=== PATIENT | female | born 1955 | race Caucasian/White ===

== ENCOUNTER 2018-01-20 11:02 | Emergency (ER) | payer OTHER ==
[~2018-01-20] VITALS: Ht 162.6 cm; Wt 49.0 kg
[~2018-01-20 11:02] MED LIST: CELE-193 PO; CHOL100046 PO; OSC500T PO
[2018-01-20 11:08] VITALS: BP 111/73
== END 2018-01-20 12:18 | disposition home or self-care (01) ==
LOC: ER 11:03
DX: M79.671 Pain in right foot (principal); G89.29 Other chronic pain; Z79.899 Other long term (current) drug therapy
CPT/HCPCS: 73630; 99283

== ENCOUNTER 2022-12-04 13:56 | Outpatient (CLI) | payer SELFPAY | END 2022-12-04 23:59 | disposition home or self-care (01) | LOC: RAD 13:56 | DX: R07.81 Pleurodynia (principal) | CPT/HCPCS: 71046; 71100 ==

== ENCOUNTER 2023-08-29 09:41 | Outpatient (CLI) | payer BC | END 2023-08-29 23:59 | disposition home or self-care (01) | LOC: MRI 09:41 | PROVIDERS: ATTEND Registered Nurse | DX: M47.817 Spondylosis without myelopathy or radiculopathy, lumbosacral region (principal); M47.813 Spondylosis without myelopathy or radiculopathy, cervicothoracic region; M48.02 Spinal stenosis, cervical region; M25.78 Osteophyte, vertebrae; N28.1 Cyst of kidney, acquired; K74.60 Unspecified cirrhosis of liver; M48.07 Spinal stenosis, lumbosacral region; M43.8X4 Other specified deforming dorsopathies, thoracic region; M41.9 Scoliosis, unspecified; M81.0 Age-related osteoporosis without current pathological fracture | CPT/HCPCS: 72141; 72146; 72148 ==

== ENCOUNTER 2023-10-07 00:53 | Outpatient (CLI) | payer BC ==
[2023-10-07 07:23] LABS: BASOPHILS % (AUTO) 0.2 % (0-1); EOSINOPHILS # (AUTO) 0.1 X10'3 (0-0.9); EOSINOPHILS % (AUTO) 0.4 % (0-6); HEMATOCRIT 39.3 % (35.0-45.0); HEMOGLOBIN 12.9 g/dl (12.0-16.0); LYMPHOCYTES # (AUTO) 2.1 X10'3 (1.1-4.8); LYMPHOCYTES % (AUTO) 13.9 % (21-51); MEAN CORPUSCULAR HEMOGLOBIN 31.9 PG (27.0-31.0); MEAN CORPUSCULAR HGB CONC 32.7 g/dL (33.0-36.5); MEAN CORPUSCULAR VOLUME 97.3 FL (78-98); MEAN PLATELET VOLUME 8.5 FL (7.4-10.4); MONOCYTES # (AUTO) 1.1 X10'3 (0-0.9); MONOCYTES % (AUTO) 6.9 % (2-12); NEUTROPHILS # (AUTO) 11.9 X10'3 (1.8-7.7); NEUTROPHILS % (AUTO) 78.6 % (42-75); PLATELET COUNT 386 X10'3 (140-440); RED BLOOD COUNT 4.04 X10'6 (4.20-5.60); RED CELL DISTRIBUTION WIDTH 13.3 % (11.5-14.5); WHITE BLOOD COUNT 15.2 X10'3 (4.5-11.0)
[2023-10-07 07:50] LABS: ALANINE AMINOTRANSFERASE 16 U/L (12-78); ALBUMIN 4.2 G/DL (3.4-5.0); ALBUMIN/GLOBULIN RATIO 1.2 (1.1-1.5); ALKALINE PHOSPHATASE 71 IU/L (46-116); ANION GAP 5 (8-16); ASPARTATE AMINO TRANSFERASE 14 U/L (10-37); BILIRUBIN,TOTAL 0.6 MG/DL (0.1-1.0); BLOOD UREA NITROGEN 24 MG/DL (7-18); BUN/CREATININE RATIO 31.2 (10.0-20.0); CALCIUM 9.3 MG/DL (8.5-10.1); CHLORIDE 104 MMOL/L (99-107); CHOL/HDL RATIO 3.2 (0.00-4.99); CHOLESTEROL 240 MG/DL (0-200); CREATININE 0.77 MG/DL (0.40-0.90); GLUCOSE 98 MG/DL (70-104); HDL CHOLESTEROL 75 MG/DL (35-60); LDL CHOLESTEROL 128 MG/DL (50-100); POTASSIUM 4.2 MMOL/L (3.5-5.1); SODIUM 139 MMOL/L (135-145); THYROID STIMULATING HORMONE 2.58 ulU/ml (0.34-4.50); TOTAL CARBON DIOXIDE 29.9 MMOL/L (24-32); TOTAL PROTEIN 7.6 G/DL (6.4-8.2); TRIGLYCERIDES 135 MG/DL (20-135); eGFR 75 ML/MIN
[2023-10-09 13:36] LABS: FOLATE SERUM(FOLIC) 14.6 ng/mL (>3.0)
== END 2023-10-07 23:59 | disposition home or self-care (01) ==
LOC: LAB 00:53
PROVIDERS: ATTEND Registered Nurse
DX: M81.0 Age-related osteoporosis without current pathological fracture (principal); M41.9 Scoliosis, unspecified; R53.83 Other fatigue; E55.9 Vitamin D deficiency, unspecified
CPT/HCPCS: 36415; 80053; 80061; 82306; 82607; 82746; 84443; 85025

== ENCOUNTER 2024-05-08 09:44 | Outpatient (CLI) | payer BC | END 2024-05-08 23:59 | disposition home or self-care (01) | LOC: RAD 09:44 | PROVIDERS: ATTEND Registered Nurse | DX: K82.4 Cholesterolosis of gallbladder (principal); R10.9 Unspecified abdominal pain; R10.30 Lower abdominal pain, unspecified; R10.10 Upper abdominal pain, unspecified; R14.0 Abdominal distension (gaseous); K76.89 Other specified diseases of liver | CPT/HCPCS: 76700 ==

== ENCOUNTER 2024-08-31 17:16 | Emergency (ER) | payer BC ==
[~2024-08-31] VITALS: Ht 157.5 cm; Wt 53.6 kg
--- NOTE | 2024-08-31 17:47 | RADIOLOGY REPORT ---
CHEST RADIOGRAPH Indication: CP Technique: Single frontal view of the chest was obtained COMPARISON: None FINDINGS: Lines and Tubes: None Lungs: Increased interstitial prominence Pleura: No effusion. No pneumothorax. Cardiomediastinal contours: Unremarkable Bones: Scoliosis IMPRESSION: Mild pulmonary vascular congestion or viral pneumonia.
[2024-08-31] MEDS ORDERED: HYDR-3965 PO (18:41)
--- NOTE | 2024-08-31 18:44 | Physician Documentation ---
History of Present Illness ~ Chief Complaint: Rib pain Stated Complaint: RIB PAIN Time Seen by MD: 17:30 Primary Medical Doctor: none Source: patient, RN/MD HPI Patient is seen today with complaints of right-sided rib pain after she slipped and fell and hit the edge of her pool on her right ribcage. Patient states she has had injury to the same right-sided ribcage previously. Patient states she is having significant difficulty making it through her work day because of pain. She states the date of injury was about two weeks ago. She denies any fevers or chills or changes of coughing as she states she does smoke and has a smoker's cough. Patient has no other concern or complaint at this time. She states she has needing a refill of [place] and a work note today. Tetanus within 5 Years?: Yes Allergies: Coded Allergies: No Known Allergies (Unverified , 12/25/09) Active Prescriptions See Medication Reconciliation Form. Medication Reconciliation Scheduled Calcium Carbonate* (Oscal*), 1 TAB PO DAILY, (Reported) Celecoxib* (Celebrex*), 100 MG PO DAILY, (Reported) Cholecalciferol (Vitamin D3) (Vitamin D), 1 CAP PO DAILY, (Reported) Past Medical History Past Medical History: Chronic Pain Past Surgical History: noncontributory Alcohol Use: None Drug Use: none Lives with: Spouse Lives In: Home Occupation: employed Review of Systems Constitutional: Denies: chills, fever, weakness Eyes: Denies: pain, blurred vision ENT: Denies: ear pain, nose pain, throat pain, mouth pain Respiratory: Denies: cough, shortness of breath Cardiovascular: Denies: chest pain, palpitations Gastrointestinal: Denies: abdominal pain, nausea, vomiting Genitourinary: Denies: burning, dysuria Female Genitalia: Denies: vaginal discharge, pelvic pain Neurological: Denies: headache, dizziness Musculoskeletal: Denies: pain, swelling Integumentary: Denies: rash, lesions Allergic/Immunologic: Denies: hives, itching Hematologic/Lymphatic: Denies: no symptoms reported Psychiatric: Denies: depression, anxiety Physical Exam Vital Signs: Temperature: 98.0, Source: Temporal, Heart Rate: 86, Respiratory Rate: 16, BP: 123/87, Pulse Oximetry: 96, Weight: 53.640 Oxygen Flow Rate: 0 Physical Exam General: Awake and Alert, no acute distress. HEENT: Conjunctiva pink, Sclera clear, Mucus Membranes moist. Neck: Supple without masses and tenderness. Resp: Unlabored. Lungs clear to auscultation bilaterally. Musculoskeletal: Patient does have significant tenderness to palpation of the right lower ribcage anterolaterally. I do not appreciate any step-offs. Heart: Regular Rate and rhythm, normal S1 and S2 without murmur, rub or gallop. Abdomen: Soft and non tender no organomegaly Extremities: No cyanosis,clubbing or edema. Skin: Warm and Dry. Progress Results/Orders Results/Orders Vital Signs 08/31/24 17:23 Temp 98.0 Pulse 86 Resp 16 B/P (MAP) 123/87 Pulse Ox 96 O2 Flow Rate 0 EKG/XRAY/CT/US/VASC/MRI Chest X-Ray : Additional Comments DIAGNOSTIC RADIOLOGY Patient: TAYLOR WOODALL Medical Record: [id number] [facility] : 1955, Age: 68 Sex: Female Location: ER Patient Status: [facility] ER Service Date/Time: 08/31/241735 Ordering Physician: CHRISTIANE CM MD Exam: CHEST,SINGLE VIEW CHEST RADIOGRAPH Indication: CP Technique: Single frontal view of the chest was obtained COMPARISON: None FINDINGS: Lines and Tubes: None Lungs: Increased interstitial prominence Pleura: No effusion. No pneumothorax. Cardiomediastinal contours: Unremarkable Bones: Scoliosis IMPRESSION: Mild pulmonary vascular congestion or viral pneumonia. Electronically Signed by:ALEXEI WHALEN MD Date & Time: 08/31/241743 Dictated by: ALEXEI WHALEN MD Dictation date and time: 08/31/241743 Primary Care Provider: NO PRIMARY CARE PROVIDER cc: CHRISTIANE CM MD ~ Medical Decision Making Findings Patient is seen today with complaints of right-sided rib pain after she slipped and fell and hit the edge of her pool on her right ribcage. Patient states she has had injury to the same right-sided ribcage previously. Patient states she is having significant difficulty making it through her work day because of pain. She states the date of injury was about two weeks ago. She denies any fevers or chills or changes of coughing as she states she does smoke and has a smoker's cough. Patient has no other concern or complaint at this time. She states she has needing a refill of [place] and a work note today. Patient was given dose of [place] 5/325 mg one tab by mouth 3 times a day for five days 15. Sent to patient's pharmacy [facility] in [place]. Patient will be given a note for work to be off for two weeks. Patient will follow up with primary care for re-evaluation and reassessment at that time. Return to ED with any worsening, concerning or changing symptoms. Patient did have chest x-ray that did show possible increased vascular congestion. Patient will monitor closely f or any changes in symptoms or shortness of breath or fevers or chills or productive cough. She voiced understanding. Departure Disposition: 01 HOME / SELF CARE / HOMELESS Impression: Primary Impression: Rib pain Discharge Instructions: Rib Contusion Additional Instructions: Patient was given dose of [place] 5/325 mg one tab by mouth 3 times a day for five days 15. Sent to patient's pharmacy [facility] in [place]. Patient will be given a note for work to be off for two weeks. Patient will follow up with primary care for re-evaluation and reassessment at that time. Return to ED with any worsening, concerning or changing symptoms. Patient did have chest x-ray that did show possible increased vascular congestion. Patient will monitor closely for any changes in symptoms or shortness of breath or fevers or chills or productive cough. She voiced understanding. Departure Forms: Excuse form Work or School Excused From: Work Excuse beginning now through the following date: Sep 14, 2024 Referrals: NO PRIMARY CARE PROVIDER (PCP) Prescriptions Hydrocodone Bit/Acetaminophen 5/325 MG ([place] 5/325 MG) 5 Mg/325 Mg Tablet 1 TAB PO TID PRN PRN for pain for 5 Days, #15 TAB Prov: QUEENIE GARCIA PAC 08/31/24 Signature Scribe Signature: No scribe Attestation: No scribe QUEENIE GARCIA PAC Aug 31, 2024 18:44
[2024-08-31 18:58] VITALS: BP 124/77; PULSE 69; RESP 16; TEMP 98; O2SAT 98
== END 2024-08-31 19:00 | disposition home or self-care (01) ==
LOC: ER 17:17
DX: R07.81 Pleurodynia (principal); W01.0XXA Fall on same level from slipping, tripping and stumbling without subsequent striking against object, initial encounter; Y93.89 Activity, other specified; Y92.89 Other specified places as the place of occurrence of the external cause; Y99.8 Other external cause status
CPT/HCPCS: 71045; 99284

== ENCOUNTER 2024-09-13 14:43 | Emergency (ER) | payer BC ==
[~2024-09-13] VITALS: Ht 157.5 cm; Wt 48.6 kg
[2024-09-13 14:52] VITALS: BP 107/63; PULSE 84; RESP 16; TEMP 98.4; O2SAT 95
--- NOTE | 2024-09-13 15:02 | Physician Documentation ---
History of Present Illness ~ Chief Complaint: Rib pain Stated Complaint: RECHECK DOC NOTE Time Seen by MD: 15:31 OK to notify your PCP?: Yes Primary Medical Doctor: none Source: patient Mode of Arrival: POV Exam Limitations: no limitations HPI 68-year-old female presents for right rib contusion which was healing but worsened after she cough yesterday. She was seen here 2 weeks ago and received x-rays with no fracture present. She was able to take the past 2 weeks off of work but needs another work note to extend her leave. She has been taking Tylenol for pain relief. Tetanus within 5 Years?: Yes Allergies: Coded Allergies: No Known Allergies (Unverified , 12/25/09) Active Prescriptions See Medication Reconciliation Form. Medication Reconciliation Scheduled Calcium Carbonate* (Oscal*), 1 TAB PO DAILY, (Reported) Celecoxib* (Celebrex*), 100 MG PO DAILY, (Reported) Cholecalciferol (Vitamin D3) (Vitamin D), 1 CAP PO DAILY, (Reported) Discontinued Medications Hydrocodone Bit/Acetaminophen 5/325 MG ([place] 5/325 MG), 1 TAB PO TID PRN PRN for pain Discontinued Reason: Auto Discontinued Past Medical History Past Medical History: Chronic Pain Past Surgical History: noncontributory Alcohol Use: None Drug Use: none Lives with: Spouse Lives In: Home Occupation: employed Review of Systems All Other Systems at this time: Reviewed and Negative Physical Exam Vital Signs: RN Vital Signs have been reviewed: Yes, Temperature: 98.4, Source: Temporal, Heart Rate: 84, Respiratory Rate: 16, BP: 107/63, Pulse Oximetry: 95, Weight: 48.650 Pulse Oximetry Reflects: adequate oxygenation Physical Exam General: Alert, no distress. HEENT: No injection, moist mucous membranes. Neck: Full range of motion. Respiratory: No respiratory distress, equal chest rise and fall. Chest: No accessory muscle use. Cardiovascular: Regular rate and rhythm. Gastrointestinal: Nondistended. Extremities: Normal range of motion, no deformity. Neurologic: Oriented x4. Psychiatric: Normal mood and affect. Skin: Normal color, warm and dry. Progress Results/Orders Reviewed/noted all lab results: Yes Results/Orders Vital Signs 09/13/24 14:52 Temp 98.4 Pulse 84 Resp 16 B/P (MAP) 107/63 Pulse Ox 95 Medical Decision Making Additional info obtained from: old records Findings 68-year-old female presents with rib contusion to left side and was seen 2 weeks ago with a negative rib X ray. It was starting to feel better but then yesterday cough and the rib pain returned. She is requesting to have more time off of work after she has not for the past 2 weeks that she is still in pain and can not feel that she can do her full duty. She needs to follow up with her [facility] for further instruction and light duty approval and PCP for medical leave/disability. I have written her a work note off for 1 more week. We applied a lidocaine patch while here in the department and I sent a prescription to her pharmacy for more. Discussed that she can continue to take Tylenol and/or ibuprofen for pain relief and use heat/ice you for relief as well. We discussed that it can take 6-8 weeks for rib contusions to fully heal. Differential Dx:Considerations: Include: Chest wall contusion, Pneumothorax, Rib fracture, Tension pneumothorax Departure Disposition: 01 HOME / SELF CARE / HOMELESS Impression: Primary Impression: Rib pain Condition: Stable Discharge Instructions: Rib Contusion Additional Instructions: Please continue to use Tylenol for your pain and I have prescribed lidocaine patches that you can put directly at the spot that hurts and keep it off for 12 hours at a time. You can also alternate ice and heat to the site 20 minutes on 20 minutes off. As you have already been off of work for the past 2 weeks, I can give you 1 more week off but you need to follow up with occupational health for further instruction/ light duty approval and see your PCP for medical leave/diasability. Rib contusions can take 6-8 weeks to fully heal. Departure Forms: Excuse form Work or School Excused From: Work Excuse beginning now through the following date: Sep 20, 2024 Referrals: NO PRIMARY CARE PROVIDER (PCP) Prescriptions Lidocaine (Lidocaine) 5 % Adh..patch 1 PATCH TOP DAILY for 30 Days, #30 PATCH 0 Refills Prov: OZYA GOSS [employer] 09/13/24 Education Educated: Patient Educated regarding: diagnosis, treatment, prognosis, need for follow up Additional Comment Medical Screen Exam This patient recieved a medical screening examination. After reviewing the individual's medical complaints with presenting symptoms and performing an appropriate physical examination, it was determined that no immediate life- threatening emergency medical condition is present. This individual is also not a women having contractions. Signature Scribe Signature: . Attestation: Scribed for Zoya Goss by Zoya Strong NP . 09/13/24 15:54 Parts of this note were created using [employer] voice recognition software program. While efforts were made to correct any mistakes made by this voice recognition software program, nonsensical phrases may remain in this note. In addition, there may be errors and syntax, grammar, content and spelling. ZOYA GOSSP Sep 13, 2024 15:02
[2024-09-13] MEDS ORDERED: LIDO700A47 TOP (15:55)
== END 2024-09-13 16:21 | disposition home or self-care (01) ==
LOC: ER 14:44
DX: R07.81 Pleurodynia (principal); R05.9 Cough, unspecified; Z79.1 Long term (current) use of non-steroidal anti-inflammatories (NSAID)
CPT/HCPCS: 99284

== ENCOUNTER 2024-10-17 06:38 | Emergency (ER) | payer BC ==
[~2024-10-17] VITALS: Ht 157.5 cm; Wt 48.0 kg
[~2024-10-17 06:38] MED LIST changes: +LIDO700A47 TOP
--- NOTE | 2024-10-17 06:46 | ELECTROCARDIOGRAPH REPORT ---
[facility] Test Date: 2024-10-17 Test Time: 06:44:27 Pat Name: TAYLOR WOODALL Department: EMERGENCY ROOM Room: Gender: F Head Correction Officer: JUAN : 1955 Requested By: YAZMIN JACOBO Order Number: [id number] Reading MD: Measurements Intervals [place] Rate: 82 P: 79 GA: 161 QRS: -21 QRSD: 142 T: 30 QT: 378 QTc: 442 Interpretive Statements Atrial-paced complexes Right atrial enlargement Nonspecific intraventricular conduction delay Please click the below link to view image of tracing.
--- NOTE | 2024-10-17 07:04 | Physician Documentation ---
History of Present Illness General Chief Complaint: Chest Pain Stated Complaint: CHEST DISCOMFORT Time Seen by MD: 07:03 Primary Medical Doctor: none History of Present Illness Initial Comments The patient is a 69-year-old female who presents to the emergency room with left-sided chest pain. Patient states pain is pleuritic has been going on for last week. The patient states she was told by a family member that she should be evaluated for the chest pain. Patient states she had an injury to her right chest wall one month ago and has been on pain medication for that. The patient denies any cardiac history. Patient is a smoker. Patient denies any dyspnea on exertion. She does complain of pleuritic chest pain. Patient denies any fevers chills nausea or vomiting. Patient's symptoms are moderate and persistent. Medication Reconciliation Allergies: Coded Allergies: No Known Allergies (Unverified , 10/17/24) Scheduled Calcium Carbonate* (Oscal*), 1 TAB PO DAILY, (Reported) Celecoxib* (Celebrex*), 100 MG PO DAILY, (Reported) Cholecalciferol (Vitamin D3) (Vitamin D), 1 CAP PO DAILY, (Reported) Lidocaine (Lidocaine), 1 PATCH TOP DAILY Past Medical History Past Medical History: Chronic Pain Past Surgical History: noncontributory Smoking: Cigarettes Alcohol Use: None Drug Use: none Lives with: Spouse Lives In: Home Occupation: employed Review of Systems All Other Systems at this time: Reviewed and Negative Physical Exam Physical Exam Vital Signs: Temperature: 97.9, Source: Temporal, Heart Rate: 85, Respiratory Rate: 16, BP: 147/79, Pulse Oximetry: 95, Weight: 48.000 Physical Exam VITALS: Reviewed and as above. GENERAL: Alert, no apparent distress. HEENT: Normocephalic, atraumatic, PERRL, EOMI, dry mucosa, no erythema RESPIRATORY: Lungs clear, normal breath sounds, no respiratory distress. CHEST: No accessory muscle use, no retractions CV: Regular rate, rhythm, no edema, no murmur, No: JVD GI: Soft, non-tender, bowels sounds present, no rebound, guarding, or rigidity BACK: No CVA tenderness, or swelling MUSCULOSKELETAL: No deformities, no edema SKIN: Warm and dry, no rash NEURO: Oriented x4, No motor or sensory deficit PSYCH: Normal mood and affect, no agitation Progress Results/Orders Results/Orders Orders - OHLYAZMIN MCGRATH MD Chest,Single View (10/17/24 07:12) Monitor (10/17/24 06:40) Saline Lock (10/17/24 06:40) Oxygen (10/17/24 06:40) Completed Orders - YAZMIN HERNANDEZ MD Chest,Single View (10/17/24 07:12) Cbc/Diff (10/17/24 06:40) BMP (10/17/24 06:40) PBNP (10/17/24 06:40) Electrocardiogram (10/17/24 06:40) Hs Troponin I W Calculations (10/17/24 06:40) D-Dimer (10/17/24 07:14) Vital Signs 10/17/24 10/17/24 10/17/24 10/17/24 06:42 07:23 07:39 07:41 Temp 97.9 98.3 Pulse 85 69 Resp 16 15 15 B/P (MAP) 147/79 129/85 (100) Pulse Ox 95 98 O2 Delivery Room Air* O2 Flow Rate 0 0 FiO2 21 10/17/24 10/17/24 09:04 09:40 Pulse 64 68 Resp 14 11 B/P (MAP) 120/82 (95) 120/82 Pulse Ox 96 97 O2 Flow Rate 0 Laboratory Tests Test 10/17/24 06:50 10/17/24 07:20 White Blood Count 8.5 Red Blood Count 4.34 Hemoglobin 14.0 Hematocrit 41.5 Mean Corpuscular Volume 95.5 Mean Corpuscular Hemoglobin 32.3 H Mean Corpuscular Hemoglobin Concent 33.8 Red Cell Distribution Width 13.0 Platelet Count 422 Mean Platelet Volume 8.6 Neutrophils (%) (Auto) 59.2 Lymphocytes (%) (Auto) 30.6 Monocytes (%) (Auto) 7.7 Eosinophils (%) (Auto) 1.8 Basophils (%) (Auto) 0.7 Neutrophils # (Auto) 5.0 Lymphocytes # (Auto) 2.6 Monocytes # (Auto) 0.7 Eosinophils # (Auto) 0.2 Basophils # (Auto) 0.1 CBC Comment Sodium Level 139 Potassium Level 3.9 Chloride Level 102 Carbon Dioxide Level 29.6 Anion Gap 7 L Blood Urea Nitrogen 17 Creatinine 0.87 Estimated GFR/1.73 m2 65 BUN/Creatinine Ratio 19.5 Glucose Level 119 H Calcium Level 9.4 Troponin I High Sensitivity 9 Pro-B-Type Natriuretic Peptide 228 H Albumin 4.1 Chemistry Comments D-Dimer 0.83 H D-Dimer Comment Medical Decision Making Findings Patient's EKG was interpreted by me the patient's EKG demonstrates a sinus rhythm with a rate of 82 there is a left axis deviation. At nonspecific ST abnormalities. The EKGs interpreted by me as nonspecific abnormalities. The patient's chest x-ray was independently interpreted by myself and shows a normal-appearing cardiac silhouette and normal-appearing lung pittman lower and scoliosis of the thoracic spine my interpretation was a normal chest x-ray I have reviewed the radiologist's interpretation as well the patient has a D-dimer of 0.83 but given her clinical history and history of coughing I do believe that her chest wall pain is likely attributed to muscle strain the patient has asked for a work note for a week the patient will be discharged with instructions to return for worsening of her symptoms. The patient's pulse oximetry was interpreted as normal and adequate the patient's hall monitor was interpreted as a sinus rhythm Departure Impression: Primary Impression: Pleurisy Discharge Instructions: Nonspecific Chest Pain, Adult Departure Forms: Excuse form Work or School Excused From: Work Excuse beginning now through the following date: Oct 22, 2024 May Return but still avoid physical Activity from now until: Oct 23, 2024 Referrals: NO PRIMARY CARE PROVIDER (PCP) Signature Scribe Signature: No scribe Attestation: The note accurately reflects work and decisions made by me.Yazmin Hernandez MD 10/18/24 16:53 YAZMIN HERNANDEZ MD Oct 17, 2024 07:04
[2024-10-17 07:09] LABS: MEAN PLATELET VOLUME 8.6 FL (7.4-10.4); RED CELL DISTRIBUTION WIDTH 13.0 % (11.5-14.5)
[2024-10-17 07:31] LABS: CREATININE 0.87 MG/DL (0.40-0.90); PRO BRAIN NATRIURETIC PEPTIDE 228 PG/ML (0-125); TOTAL CARBON DIOXIDE 29.6 MMOL/L (24-32); eCRCL 47 ML/MIN; eGFR 65 ML/MIN
[2024-10-17 07:41] VITALS: TEMP 98.3
[2024-10-17 09:40] VITALS: BP 120/82; PULSE 68; RESP 11; O2SAT 97
--- NOTE | 2024-10-17 15:04 | RADIOLOGY REPORT ---
DI CHEST,SINGLE VIEW, HISTORY: CP COMPARISON: DI CHEST,SINGLE VIEW on DOS: 08/31/24, DI CHEST,TWO VIEWS on DOS: 12/04/22 DI CHEST,SINGLE VIEW on DOS: 08/31/24, DI CHEST,TWO VIEWS on DOS: 12/04/22 TECHNICAL DATA: 1 view of the chest was obtained. FINDINGS: Lines and tubes: None Cardiomediastinal silhouette: normal Pulmonary vasculature: normal Lung expansion: normal Lung airspace: Possible 1.1 cm right mid lung zone pulmonary nodule. Left basilar subsegmental atelec tasis. Lung interstitium: normal Pleura: normal Pneumothorax: no Bones: S shaped curvature of the thoracolumbar spine. Other: no IMPRESSION: Possible 1.1 cm right mid lung zone pulmonary nodule. Left basilar subsegmental atelectasis.
== END 2024-10-17 09:55 | disposition home or self-care (01) ==
LOC: ER 06:39
DX: R09.1 Pleurisy (principal); R07.89 Other chest pain; Z95.0 Presence of cardiac pacemaker; Z79.899 Other long term (current) drug therapy
CPT/HCPCS: 36415; 71045; 80048; 83880; 84484; 85025; 85379; 93005; 99285

== ENCOUNTER 2024-10-28 14:58 | Outpatient (CLI) | payer BC ==
--- NOTE | 2024-10-29 05:14 | RADIOLOGY REPORT ---
EXAM: CT CT THORACIC SPINE HISTORY: SCOLIOSIS, UNSPECIFIED COMPARISON: MRI thoracic spine dated 08/29/2023 DI CHEST,SINGLE VIEW on DOS: 10/17/24, DI CHEST,SINGLE VIEW on DOS: 08/31/24, MR MRI THORACIC SPINE on DOS: 08/29/23, DI CHEST,TWO VIEWS on DOS: 12/04/22 CTDIvol 7.4 mGy, DLP 245.03 mGy*cm. TECHNIQUE: Multiple axial CT images of the spine were obtained using bone algorithm. Axial and summers l reformatting was done. Bone and soft tissue windows were reviewed. FINDINGS: No evidence of definite acute fracture, spinal dislocation, or significant appearing acute subluxatio n is seen. Chronic appearing compression fracture of the T6 vertebral body. Scoliosis. Moderate centrilobular emphysema. IMPRESSION: No definite CT evidence of acute fracture or dislocation of the bony thoracic spine.
== END 2024-10-28 23:59 | disposition home or self-care (01) ==
LOC: RAD 14:58
PROVIDERS: ATTEND Family Medicine
DX: R07.89 Other chest pain (principal); R07.81 Pleurodynia; M41.9 Scoliosis, unspecified
CPT/HCPCS: 72128

== ENCOUNTER 2024-11-20 21:28 | Emergency (ER) | payer BC ==
[~2024-11-20] VITALS: Ht 157.5 cm; Wt 45.5 kg
[2024-11-20 22:09] LABS: MEAN PLATELET VOLUME 8.7 FL (7.4-10.4); RED CELL DISTRIBUTION WIDTH 13.6 % (11.5-14.5)
[2024-11-20 22:25] LABS: CREATININE 1.01 MG/DL (0.40-0.90); PRO BRAIN NATRIURETIC PEPTIDE 255 PG/ML (0-125); TOTAL CARBON DIOXIDE 36.5 MMOL/L (24-32); eCRCL 38 ML/MIN; eGFR 55 ML/MIN
--- NOTE | 2024-11-20 23:15 | RADIOLOGY REPORT ---
CHEST RADIOGRAPH Indication: COUGH Technique: Frontal and lateral view of the chest was obtained Comparison: CT CT THORACIC SPINE on DOS: 10/28/24, DI CHEST,SINGLE VIEW on DOS: 10/17/24, DI CHEST,SINGLE VIEW on DOS: 08/31/24, MR MRI THORACIC SPINE on DOS: 08/29/23, DI CHEST,TWO VIEWS on DOS: 12/04/22 FINDINGS: Lines and Tubes: None Lungs: Clear Pleura: No effusion. No pneumothorax. Cardiomediastinal contours: Unremarkable Bones: Severe S-shaped thoracolumbar scoliosis IMPRESSION: No evidence of acute disease.
--- NOTE | 2024-11-21 00:15 | Physician Documentation ---
History of Present Illness ~ Chief Complaint: Cough Stated Complaint: PNEUMONIA Time Seen by MD: 00:14 Primary Medical Doctor: none HPI Patient presents to the emergency room with cough and chest pain. Symptoms going on for this past week. She is concerned that she is developing pneumonia. Medication Reconciliation Allergies: Coded Allergies: No Known Allergies (Unverified , 11/20/24) Scheduled Calcium Carbonate* (Oscal*), 1 TAB PO DAILY, (Reported) Celecoxib* (Celebrex*), 100 MG PO DAILY, (Reported) Cholecalciferol (Vitamin D3) (Vitamin D), 1 CAP PO DAILY, (Reported) Lidocaine (Lidocaine), 1 PATCH TOP DAILY Past Medical History Past Medical History: Chronic Pain Past Surgical History: noncontributory Alcohol Use: None Drug Use: none Lives with: Spouse Lives In: Home Occupation: employed Review of Systems ROS All review of systems negative except as per HPI Physical Exam Vital Signs: Temperature: 98.3, Source: Oral, Heart Rate: 89, Respiratory Rate: 16, BP: 138/82, Pulse Oximetry: 94, Weight: 45.500 Oxygen Flow Rate: 0 Physical Exam General: Patient is awake, alert, oriented x4 in no acute distress Head: Normocephalic and atraumatic. Eyes: Conjunctival normal. EOMI. PERRL. ENT: Mucous membranes moist. Neck: Supple, trachea is midline. Chest: Clear to auscultation bilaterally without rales, rhonchi, or wheezes. There is no accessory muscle use or retractions. Cardiac: RRR without murmurs, gallops, or rubs. Abd: Soft, nondistended, nontender, with normoactive bowel sounds. No guarding, rebound, or rigidity. Progress Results/Orders Results/Orders Orders - JAMIE RUSSO MD Chest,Two Views (11/20/24 21:40) Culture Blood (11/20/24 21:40) Saline Lock (11/20/24 21:40) Oxygen (11/20/24 21:40) Cta Chest Pe (11/21/24 00:20) Completed Orders - JAMIE RUSSO MD Chest,Two Views (11/20/24 21:40) Cbc/Diff (11/20/24 21:40) BMP (11/20/24 21:40) PBNP (11/20/24 21:40) Lacticsepsis (11/20/24 21:40) Cta Chest Pe (11/21/24 00:20) Ketorolac Trometh 15mg/Ml Vial (Toradol (11/21/24 00:20) Acetaminophen 1,000mg/100ml Iv (Ofirmev (11/21/24 00:20) Iohexol 350mg/Ml 100ml (Omnipaque 350mg/ (11/21/24 00:29) Medications Received in ER Medications (Trade) Dose Ordered Sig/Johnny Route PRN Reason Start Time Stop Time Status Last Admin Dose Admin (Toradol injection) 15 mg ONCE ONCE IV 11/21/24 00:20 11/21/24 00:27 DC 11/21/24 00:39 15 MG Acetaminophen 100 ml @ 400 mls/hr ONCE ONCE IV 11/21/24 00:20 11/21/24 00:34 DC 11/21/24 00:56 400 MLS/HR Vital Signs 11/20/24 11/21/24 11/21/24 11/21/24 21:34 00:39 01:03 01:37 Temp 98.3 98.3 Pulse 89 77 Resp 16 12 18 B/P (MAP) 138/82 130/77 (94) Pulse Ox 94 93 91 O2 Delivery Room Air* O2 Flow Rate 0 0 0 FiO2 21 11/21/24 01:47 Temp 98.3 Pulse 92 Resp 18 B/P (MAP) Pulse Ox 90 Laboratory Tests Test 11/20/24 21:49 White Blood Count 12.8 H Red Blood Count 4.33 Hemoglobin 14.1 Hematocrit 41.6 Mean Corpuscular Volume 96.1 Mean Corpuscular Hemoglobin 32.5 H Mean Corpuscular Hemoglobin Concent 33.8 Red Cell Distribution Width 13.6 Platelet Count 446 H Mean Platelet Volume 8.7 Neutrophils (%) (Auto) 74.0 Lymphocytes (%) (Auto) 18.9 L Monocytes (%) (Auto) 6.2 Eosinophils (%) (Auto) 0.3 Basophils (%) (Auto) 0.6 Neutrophils # (Auto) 9.5 H Lymphocytes # (Auto) 2.4 Monocytes # (Auto) 0.8 Eosinophils # (Auto) 0.0 Basophils # (Auto) 0.1 CBC Comment Sodium Level 142 Potassium Level 3.8 Chloride Level 100 Carbon Dioxide Level 36.5 H Anion Gap 6 L Blood Urea Nitrogen 22 H Creatinine 1.01 H Estimated GFR/1.73 m2 55 BUN/Creatinine Ratio 21.8 H Glucose Level 123 H Lactic Acid Level 0.9 Calcium Level 9.8 Pro-B-Type Natriuretic Peptide 255 H Albumin 4.0 Chemistry Comments Microbiology Date/Time Source Procedure Growth Status 11/20/24 21:55 Blood Arm Right Blood Culture - Preliminary NEGATIVE (LESS THAN 24 HOURS) Resulted Departure Disposition: HOME / SELF CARE / HOMELESS Impression: Primary Impression: Cough Condition: Stable Discharge Instructions: Pleurisy, [id number] Referrals: NO PRIMARY CARE PROVIDER (PCP) Prescriptions Azithromycin (Zithromax) 250 Mg Tablet 250 MG PO DAILY, #6 TAB Take 2 tabs on day one, one tab daily thereafter Prov: JAMIE RUSSO MD 11/21/24 Hydrocodone Bit/Acetaminophen 5/325 MG (Teaberry 5/325 MG) 5 Mg/325 Mg Tablet 1-2 TAB PO Q4-6 hours PRN for pain, #20 TAB Prov: JAMIE RUSSO MD 11/21/24 Education Educated: Patient Educated regarding: diagnosis, treatment, need for follow up Signature Scribe Signature: No scribe Attestation: The note accurately reflects work and decisions made by me.Jamie Russo MD 11/21/24 01:58 JAMIE RUSSO MD Nov 21, 2024 00:15
[2024-11-21] MEDS: ketorolac trometh 15mg/ml vial 15 MG/ML ML IV ONE (00:39)
[2024-11-21] MEDS: acetaminophen 1,000mg/100ml IV 100 ML IV ONE (00:56)
--- NOTE | 2024-11-21 01:12 | RADIOLOGY REPORT ---
CTA Chest with intravenous contrast INDICATION: suspected PE chest pain. COMPARISON: None TECHNIQUE: Multidetector spiral CTA of the chest was performed of the chest with intravenous contrast. PULMONARY ANGIOGRAPHY PROTOCOL was utilized using a bolus- tracking technique centered on the main pulmonary artery. Axial, coronal and sagittal multiplanar and MIP reformats were performed. Radiation dose : 1. Chest: CTDI volume is 5.59 mGy. Dose-length product is 219.26 mGy*cm Contrast: 100 cc of omnipaque 350 intravenously The dose indicators for CT are the volume computed tomography (CT) dose index (CTDIvol) and the dose length product (DLP), and are measured in units of mGy and mGy-cm, respectively. These indicators are not patient dose, but values generated from the CT scanner acquisition factors. The report includes radiation exposure data for exposures received during this examination. Findings: Pulmonary artery: No pulmonary embolism Lower neck: Normal thyroid. Lungs: No focal consolidation, pleural effusion or pneumothorax. Moderate centrilobular emphysema with slight upper and mid lung predominance. Mild paraseptal emphysema. Heart/Vascular Structures: Normal heart size. No pericardial effusion. Lymph Nodes: No adenopathy Pleura: No pleural effusion or significant pneumothorax. Musculoskeletal: No acute osseous abnormality. Severe S-shaped thoracolumbar scoliosis. Soft tissues: Normal. Upper abdomen: Multiple hepatic cysts. IMPRESSION: No pulmonary embolism. No acute thoracic finding. Moderate emphysema.
[2024-11-21 01:47] VITALS: PULSE 92; RESP 18; TEMP 98.3; O2SAT 90
[2024-11-21] MEDS ORDERED: HYDR-3965 PO (01:58)
[2024-11-21] MEDS ORDERED: AZIT-164 PO (01:58)
== END 2024-11-21 02:01 | disposition home or self-care (01) ==
LOC: ER 21:28
DX: R05.9 Cough, unspecified (principal); R07.9 Chest pain, unspecified; R06.02 Shortness of breath
CPT/HCPCS: 36415; 71046; 71275; 80048; 83605; 83880; 85025; 87040; 96365; 96375; 99285; J0131; J1885; Q9967